=== PATIENT | male | born 1940 | race Caucasian/White ===

== ENCOUNTER → 2016-12-04 | Outpatient (CLI) | payer OTHER ==
[2016-12-04 13:18] LABS: BASO % 0.5 %; BASO ABS # 0.05 K/uL (0-0.2); COMPLETE YES; EOS % 7.2 %; HEMATOCRIT 43.3 % (42-52); IG% 0.2 %; LYMPH % 23.2 %; MEAN CELL VOLUME 91.2 fL (80-100); MEAN CORPUSCULAR HEMOGLOBIN 30.3 pg (25-34); MEAN CORPUSCULAR HGB CONC 33.3 g/dl (32-36); MONO % 5.9 %; PLATELET COUNT 269 K/uL (130-400); RED BLOOD COUNT 4.75 M/uL (4.7-6.1)
--- NOTE | 2016-12-04 13:23 | DIAGNOSTIC IMAGING REPORT ---
FOUR VIEW CHEST CLINICAL HISTORY: Cough. Pleuritis. FINDINGS: PA, lateral, and bilateral decubitus chest radiographs are obtained. No prior studies are available for comparison at the time of dictation. The PA view is degraded by patient rotation. The cardiomediastinal silhouette is unremarkable. Nonspecific interstitial thickening is noted. There is no airspace consolidation typical for pneumonia. No layering pleural effusion was seen on the decubitus views. There is no pneumothorax. The skeletal structures are osteopenic. The bony thorax appears intact. IMPRESSION: 1. No active disease in the chest. 2. No pleural effusions are seen on the decubitus views. Electronically signed by: Jose De Jesus Manley M.D. 12/04/2016 1:22 PM Dictated Date/Time: 12/04/2016 1:20 PM
== END | disposition home or self-care (01) ==
LOC: C.RAD 12:12
PROVIDERS: ATTEND Internal Medicine Critical Care Medicine
DX: D64.9 Anemia, unspecified (principal); D72.829 Elevated white blood cell count, unspecified; R05 Cough; R09.1 Pleurisy

== ENCOUNTER → 2017-03-03 | Outpatient (CLI) | payer OTHER ==
[2017-03-03 09:02] LABS: BASO % 0.8 %; BASO ABS # 0.06 K/uL (0-0.2); COMPLETE YES; EOS % 5.4 %; HEMATOCRIT 44.3 % (42-52); IG% 0.1 %; LYMPH % 26.8 %; LYMPH ABS # 1.92 K/uL (1.2-3.4); MEAN CELL VOLUME 90.4 fL (80-100); MEAN CORPUSCULAR HEMOGLOBIN 30.2 pg (25-34); MEAN CORPUSCULAR HGB CONC 33.4 g/dl (32-36); MEAN PLATELET VOLUME 9.9 fL (7.4-10.4); MONO % 7.9 %; PLATELET COUNT 286 K/uL (130-400); WHITE BLOOD COUNT 7.17 K/uL (4.8-10.8)
[2017-03-03 09:10] LABS: ALT/SGPT 29 U/L (12-78); BLOOD UREA NITROGEN 17 mg/dl (7-18); BUN/CREATININE RATIO 17.1 (10-20); CALCIUM 8.8 mg/dl (8.5-10.1); CARBON DIOXIDE 25 mmol/L (21-32); CHLORIDE 110 mmol/L (98-107); GLUCOSE 91 mg/dl (70-99); POTASSIUM 4.1 mmol/L (3.5-5.1); SODIUM 141 mmol/L (136-145)
[2017-03-03 09:13] LABS: ALKALINE PHOSPHATASE 57 U/L (45-117); AST/SGOT 18 U/L (15-37)
== END | disposition home or self-care (01) ==
LOC: C.LABVPSUW 08:51
PROVIDERS: ATTEND Internal Medicine Critical Care Medicine
DX: R53.83 Other fatigue (principal); I10 Essential (primary) hypertension; D64.9 Anemia, unspecified; D72.829 Elevated white blood cell count, unspecified

== ENCOUNTER → 2017-03-11 | Outpatient (CLI) | payer OTHER ==
[~2017-03-11] MED LIST: OPTIRAY 320 IV PRN
--- NOTE | 2017-03-11 14:10 | DIAGNOSTIC IMAGING REPORT ---
CT OF THE CHEST WITH IV CONTRAST CLINICAL HISTORY: Bronchiectasis. Persistent cough. COMPARISON STUDY: Chest radiographs December 04, 2016. TECHNIQUE: Following IV administration of 93 mL of [id number]-320, helical axial images of the chest were obtained. Sagittal and coronal reconstructions were viewed as well as maximal intensity projections on an independent 3-D workstation. A dose lowering technique was utilized adhering to the principles of ALARA. CT DOSE: 486.99 mGycm FINDINGS: No enlarged axillary, mediastinal or hilar lymph nodes are present. The heart is mildly enlarged. There is no pericardial effusion. No pneumothorax or pleural effusion is present. Central airways are patent. There is a 7 mm circumscribed right upper lobe nodule shown on image 107 of 326. This may reflect an intrapulmonary lymph node. Note is made of a 4 mm subpleural lingular nodule shown image 185 and a 4 mm subpleural left lower lobe nodule shown image 234. No honeycombing is present. Linear and groundglass opacities suggest atelectasis. There is no consolidation to suggest pneumonia. There is minimal mucus within the trachea just below the level of the thoracic inlet. IMPRESSION: 1. No acute intrathoracic findings. No consolidation to suggest pneumonia. Linear and groundglass opacities favor atelectasis. 2. No CT evidence of interstitial lung disease. No bronchiectasis. 3. A few small indeterminate but low suspicion pulmonary nodules, as described above. A follow-up chest CT in one year to ensure stability is recommended. Electronically signed by: Vince Fritz M.D. 03/11/2017 2:08 PM Dictated Date/Time: 03/11/2017 1:35 PM
--- NOTE | 2017-03-12 10:04 | PULMONARY FUNCTION TEST ---
Spirometry is suggestive for mild obstructive pattern. Repeat study done following bronchodilator showed no significant change in function. Flow volume loops were consistent with spirometric findings.
== END | disposition home or self-care (01) ==
LOC: C.CTS 12:17
PROVIDERS: ATTEND Internal Medicine Critical Care Medicine
DX: R05 Cough (principal); J47.9 Bronchiectasis, uncomplicated; J18.9 Pneumonia, unspecified organism; J45.909 Unspecified asthma, uncomplicated; R91.8 Other nonspecific abnormal finding of lung field

== ENCOUNTER → 2017-07-02 | Outpatient (CLI) | payer OTHER ==
[2017-07-02 13:41] LABS: SYNOVIAL FLUID APPEARANCE CLOUDY; SYNOVIAL FLUID COLOR YELLOW; SYNOVIAL FLUID MONONUC RELAT 73.4 %; SYNOVIAL FLUID POLYNUC RELAT 26.6 %
[2017-07-05 03:30] LABS: LYME DNA PCR CSF OR SYNOVIAL Not detected (Not Detected); LYME DNA SOURCE Synovial Fluid
== END | disposition home or self-care (01) ==
LOC: C.LABBC 12:01
PROVIDERS: ATTEND Orthopaedic Surgery
DX: M25.461 Effusion, right knee (principal); M25.561 Pain in right knee

== ENCOUNTER → 2018-03-02 | Outpatient (CLI) | payer OTHER ==
--- NOTE | 2018-03-02 09:36 | DIAGNOSTIC IMAGING REPORT ---
CT SCAN OF THE CHEST WITHOUT IV CONTRAST CLINICAL HISTORY: Cough. Pulmonary nodules. COMPARISON STUDY: Chest CT dated 03/11/2017. TECHNIQUE: CT scan of the thorax was performed from the thoracic inlet to the upper abdomen. Images are reviewed in the axial, sagittal, and coronal planes. IV contrast was not administered for this examination as per the referring clinician. A dose lowering technique was utilized adhering to the principles of ALARA. CT DOSE: 562.62 mGycm FINDINGS: Thyroid: Imaged portions of the thyroid gland are normal in size and attenuation. A 2.3 cm low-attenuation nodule containing a coarse calcification is seen in the right lobe. Thoracic aorta: The thoracic aorta is normal in caliber and demonstrates standard 3-vessel arch anatomy. Heart: The heart is normal in size and without pericardial effusion. There are scattered coronary artery calcifications. Lungs and pleural spaces: There is no airspace consolidation or pleural effusion. Mild bibasilar scarring/atelectasis is noted. The trachea and central airways are clear. There are scattered low suspicion pulmonary nodules. There is a 3 mm left lower lobe nodule seen image #241 endotracheal and right lower lobe nodule seen image #173. 3 mm left upper lobe pulmonary nodules are seen on images #40 and #184. A 7 mm peribronchial nodule/lymph node is seen in the right upper lobe on image #111. These are unchanged from 03/11/2017. No new pulmonary lesion is identified. Mediastinum: There is no mediastinal lymphadenopathy. Alejandra: Not well assessed without IV contrast. Axillae: There is no axillary lymphadenopathy. Upper abdomen: There is a moderate hiatal hernia. Partially visualized upper abdominal viscera is otherwise within normal limits. Skeletal structures: No lytic or blastic bony lesions are seen. IMPRESSION: 1. There is no airspace consolidation or pleural effusion. 2. Scattered pulmonary nodules have not significantly changed in size or distribution from 03/11/2017. 1 additional follow-up examination in one years time is recommended to document 2 views of stability. 3. No new pulmonary nodule is seen. Electronically signed by: Jose De Jesus Manley M.D. 03/02/2018 9:34 AM Dictated Date/Time: 03/02/2018 9:29 AM
== END | disposition home or self-care (01) ==
LOC: C.CTS 09:07
PROVIDERS: ATTEND Internal Medicine Critical Care Medicine
DX: J31.0 Chronic rhinitis (principal); R91.8 Other nonspecific abnormal finding of lung field